=== PATIENT | male | born 1975 | race Caucasian/White ===

== ENCOUNTER 2017-12-19 05:11 | Observation (INO) | payer BC, MEDICAID ==
[~2017-12-19 05:11] MED LIST: LORA-392 PO; OMEP20TA93 PO; OMPR20CCR PO
--- NOTE | 2017-12-19 11:36 | HHI.HP ---
HPI Service [facility] Primary Care Physician Unknown Admission Diagnosis Diagnoses: Travel History International Travel<30 Days: No Contact w/Intl Traveler <30 Da: No Traveled to Known Affected Are: No History of Present Illness History from patient, review of medical records. Patient was transferred to [facility] from [place] emergency room. He was seen in [place] early this morning. Patient reported that he has been having abdominal pain for the past 1 week although the symptoms were initially quite dull. However today at 1:30 AM, the pain woke him up from sleep. He pointed to his right upper quadrant and right lower quadrant is where the pain is located. Denies any epigastric pain. He felt that his abdomen has been bloating as well. Denies any diarrhea or constipation. Denies having any blood in his stool or in his urine. He denies any nausea or vomiting. Per stated that he has been gagging quite a bit and he thinks that it may be because of pain. Denies fever. On review of system, patient also reports of dizziness. However stated that this has been going on for a while and not necessarily related to this episode of abdominal pains. Patient is history of multiple bowel resections prior. It started out at 18 years old with resection of a cyst in his abdomen which required partial colon resection as well. The 2 others subsequent bowel resections are secondary to adhesions from this. Of note, patient also reports of abnormal labs done at his PCP office recently. He was found to have elevated LFTs and was told that he would be having a liver ultrasound which she hasn't had it done. At [place] emergency room, the LFTs are quite normal except that ALT was mildly elevated at 86. Review of Systems Except as stated in HPI: all other systems reviewed are Neg Past Family Social History Past Medical History had physical 2 weeks ago, had all stuff off- LFTs were high, schedule for liver US but not done yet vitamin d, b12, iron all really low bowel resection at 18yo - for cyst in intestine that is contained - but had to remove cyst and partial bowel 2nd and 3rd bowel resections were around age 22yo and 39 yo respectively- both for adhesions PVCs sleep apnea- cpap at night, but not compliant Past Surgical History sinus sx hand sx bowel resection at 18yo - for cyst in intestine that is contained - but had to remove cyst and partial bowel 2nd and 3rd bowel resections were around age 22yo and 39 yo respectively- both for adhesions appendectomy Allergies: Coded Allergies: No Known Allergies (Unverified Allergy, Unknown, 12/19/17) Family History father- had everything - htn, ckd, heart, dm was also [place] war, agent orange exposure Social History no smoking no etoh abuse no drugs Physical Exam Physical Exam GENERAL: This is a well-nourished, well-developed patient, in no apparent distress. SKIN: No rashes, ecchymoses or lesions. Cool and dry. HEAD: Atraumatic. Normocephalic. No temporal or scalp tenderness. EYES: No scleral icterus. No injection or drainage. ENT: Nose without bleeding, purulent drainage or septal hematoma. . Airway patent. NECK: Trachea midline. No JVD . Supple, nontender, no meningeal signs. CARDIOVASCULAR: Regular rate and rhythm without murmurs, gallops, or rubs. RESPIRATORY: Clear to auscultation. Breath sounds equal bilaterally. No wheezes , rales, or rhonchi. GASTROINTESTINAL: Abdomen soft, nondistended. No guarding. Tenderness at right lower quadrant area MUSCULOSKELETAL: Extremities without clubbing, cyanosis, or edema.No calf tenderness. NEUROLOGICAL: Awake and alert. Motor and sensory grossly within normal limits. Normal speech. Caprini VTE Risk Assessment Caprini VTE Risk Assessment: No/Low Risk (score <= 1) Caprini Risk Assessment Model Point Value = 1 Point Value = 2 Point Value = 3 Point Value = 5 Age 41-60 Minor surgery BMI > 25 kg/m2 Swollen legs Varicose veins or History of unexplained or recurrent spontaneous Oral contraceptives or hormone replacement Sepsis (< 1 month) Serious lung disease, including pneumonia (< 1 month) Abnormal pulmonary function Acute myocardial infarction Congestive heart failure (< 1 month) History of inflammatory bowel disease Medical patient at bed rest Age 61-74 Arthroscopic surgery Major open surgery (> 45 min) Laparoscopic surgery (> 45 min) Malignancy Confined to bed (> 72 hours) Immobilizing plaster cast Central venous access Age >= 75 History of VTE Family history of VTE Factor V Leiden Prothrombin [id number] Lupus anticoagulant Anticardiolipin antibodies Elevated serum homocysteine Heparin-induced thrombocytopenia Other congenital or acquired thrombophilia Stroke (< 1 month) Elective arthroplasty Hip, pelvis, or leg fracture Acute spinal cord injury (< 1 month) Prophylaxis Regimen Total Risk Factor Score Risk Level Prophylaxis Regimen 0-1 Low Early ambulation 2 Moderate Order ONE of the following: *Sequential Compression Device (SCD) *Heparin 5000 units SQ BID 3-4 Higher Order ONE of the following medications: *Heparin 5000 units SQ TID *Enoxaparin/Lovenox 40 mg SQ daily (WT < 150 kg, CrCl > 30 mL/min) *Enoxaparin/Lovenox 30 mg SQ daily (WT < 150 kg, CrCl > 10-29 mL/min) *Enoxaparin/Lovenox 30 mg SQ BID (WT < 150 kg, CrCl > 30 mL/min) AND/OR *Sequential Compression Device (SCD) 5 or more Highest Order ONE of the following medications: *Heparin 5000 units SQ TID (Preferred with Epidurals) *Enoxaparin/Lovenox 40 mg SQ daily (WT < 150 kg, CrCl > 30 mL/min) *Enoxaparin/Lovenox 30 mg SQ daily (WT < 150 kg, CrCl > 10-29 mL/min) *Enoxaparin/Lovenox 30 mg SQ BID (WT < 150 kg, CrCl > 30 mL/min) AND *Sequential Compression Device (SCD) Assessment and Plan Assessment and Plan Impression: Abdominal pain. Suspect CBD stone which probably is past now. Given that patient had abnormal LFTs 2 weeks ago at PCP office, this is a possibility. Rule out acute hepatitis History of bowel resection at 18 years old- for cyst in intestine that is contained - but had to remove cyst and partial bowel 2nd and 3rd bowel resections were around age 22yo and 39 yo respectively- both for adhesions PVCs sleep apnea- cpap at night, but not compliant Plan: Ultrasound of the abdomen. Hepatitis profile. Based on the above, will consider GI consult if needed. Pain control with morphine 2 mg IV every 3 hours when necessary. Resume home dose of omeprazole. Patient does not take any other prescribed medications. DVT prophylaxis with SCD. Discussed Condition With Patient Keira Thomas MD Dec 19, 2017 11:36
[2017-12-19] MEDS ORDERED: SODIUM CHLORIDE 0.9% FLUSH 10 ML FLUSH IV FLUSH PRN (11:45)
[2017-12-19] MEDS ORDERED: MORPHINE SULFATE 2 MG/ML SYRINGE IV PUSH PRN (11:45)
[2017-12-19] MEDS ORDERED: NALOXONE HCL 0.4 MG/ML AMP IV PUSH PRN (11:45)
[2017-12-19] MEDS ORDERED: SODIUM CHLOR 0.9% 1000 ML INJ 1,000 ML IV SCH (12:00)
[2017-12-19 14:02] VITALS: BP 113/78; PULSE 70; RESP 18; O2SAT 99
--- NOTE | 2017-12-19 14:25 | RADRPT ---
EXAM DATE/TIME: 12/19/2017 12:22 [facility] COMPARISON: CT ABDOMEN & PELVIS W/O CONTRAST, December 19, 2017, 3:46. INDICATIONS : Abdominal pain. MEDICAL HISTORY : Gastroesophageal reflux disease. PVC's, history of bowel obstruction. SURGICAL HISTORY : Appendectomy. Umbilical hernia repair. Colon resection x3. ENCOUNTER: Initial ACUITY: 1 day PAIN SCORE: 5/10 LOCATION: Bilateral upper quadrant MEASUREMENTS: LIVER: 15.5 cm length COMMON DUCT: Non-visualized RIGHT KIDNEY: 11.5 x 4.8 x 6.3 cm LEFT KIDNEY: 12.1 x 4.4 x 4.8 cm SPLEEN: 13.1 cm length AORTA: 1.5cm maximal FINDINGS: LIVER: Normal echotexture without focal lesion or ductal dilatation. COMMON DUCT: Not visualized. GALLBLADDER: Contains no stones, demonstrates no wall thickening or pericholecystic fluid. PANCREAS: The visualized portions are within normal limits. RIGHT KIDNEY: No hydronephrosis, stone or mass. LEFT KIDNEY: No hydronephrosis, stone or mass. SPLEEN: No focal lesion. AORTA: Non aneurysmal. IVC: Within normal limits. CONCLUSION: 1. Limited examination due to bowel gas. 2. Common bile duct is not visualized. 3. Otherwise, unremarkable right upper quadrant ultrasound examination. Specifically, no cholelithias is or sonographic evidence for acute cholecystitis. Hebert De Guzman MD on December 19, 2017 at 14:20 Board Certified Radiologist. This report was verified electronically.
[2017-12-19 15:01] VITALS: BP 116/81
[2017-12-19] MEDS ORDERED: SODIUM CHLORIDE 0.9% FLUSH 10 ML FLUSH IV FLUSH SCH (21:00)
[2017-12-20] MEDS ORDERED: PANTOPRAZOLE SOD 20 MG DELAYED RELEASE TAB PO SCH (09:00)
== END 2017-12-19 18:32 | disposition home or self-care (01) ==
LOC: PHEDDLT 05:11 → NEDA 10:25
PROVIDERS: ADMIT Internal Medicine; ATTEND Internal Medicine
DX: R10.11 Right upper quadrant pain (principal); R14.0 Abdominal distension (gaseous); R42 Dizziness and giddiness; G47.30 Sleep apnea, unspecified; Z90.49 Acquired absence of other specified parts of digestive tract
CPT/HCPCS: 74176; 76700; 80053; 81001; 83605; 83690; 85025; 96360; 96372; 99285; G0378; J1885; J2405; J7030